=== PATIENT | male | born 1975 | race Caucasian/White ===

== ENCOUNTER 2018-05-27 11:25 | Emergency (ER) | payer BC, OTHER, SELFPAY ==
[2018-05-27 11:29] VITALS: BP 132/92; PULSE 86; TEMP 36.5; O2SAT 97
--- NOTE | 2018-05-27 11:31 | W.ED.GENAD ---
Discharge Plan Discharge Details Chief Complaint: Headache Primary Care Provider: Miguelina,Local ED Provider: Adam Louie Home Meds and New Rx's Prescriptions: New doxycycline hyclate 100 mg tablet 100 mg PO BID Qty: 14 RF: 0 No Action omeprazole 20 mg Capsule,Delayed Release(Dr/Ec) 20 mg PO DAILY RF: 0 Medical Decision Making Patient presenting to the emergency department for chief complaint of headache with some sinus discomfort. Patient states that pain is been severe and worsening over the past couple days. Patient states more symptoms on the left than the right. Physical exam is remarkable for sinus tenderness mainly to frontal and maxillary sinuses with more appreciated pain to the left maxillary sinus. Exam is otherwise unremarkable. Patient does state that he did have a sinus infection in late March and used amoxicillin. Patient reports some continued congestion after that point. Patient has been around other family members with upper respiratory illness. Patient given fluids, ketorolac, and Benadryl in the emergency department for headache. Given severity of patient's symptoms I do feel antibiotic treatment would be beneficial and patient placed on doxycycline. Patient reassessed after receiving medication and states improvement of symptoms. There are no neurological deficits to make me concern for sinus thrombosis or other neurological cause of headache and sinus pressure so patient discharged on doxycycline and informed to follow-up with primary care provider as needed. HPI General Mode of arrival: ambulatory. Date/Time Provider Initiated Documentation: 05/27/18 11:29. Limitations to Documentation: no limitations. Information obtained by: patient and RN notes reviewed. History of Present Illness 42 year old M presents to the emergency department with the chief complaint of sinus pain/headache, described as severe, with intensity rated at 8. Quality is described as sharp, and is localized to the head, face and eyes. Patient started experiencing this day(s) (3) Related Data Home Medications Medication Instructions Recorded Confirmed doxycycline hyclate 100 mg PO BID #14 tab 05/27/18 omeprazole 20 mg PO DAILY 05/27/18 05/27/18 Previous Rx's Medication Instructions Recorded doxycycline hyclate 100 mg PO BID #14 tab 05/27/18 Allergies Allergy/AdvReac Type Severity Reaction Status Date / Time No Known Allergies Allergy Unverified 05/27/18 11:36 Review of Systems Constitutional Denies body ache(s), Reports chills, Denies fever(s) and Reports headache(s) Eyes Denies change in vision ENT Reports as per HPI, Reports headache(s), Reports nasal congestion, Denies neck pain, Reports post nasal drip, Reports sinus pain and Reports sinus pressure Cardiovascular Denies chest pain and Denies syncope Gastrointestinal Reports nausea and Reports vomiting Musculoskeletal Denies neck pain Neurologic Denies syncope and Reports headache(s) [facility] Social History Smoking/Tobacco Use Status: Never Exam Const General: cooperative, healthy appearing, no acute distress and well groomed Orientation: alert, awake and oriented x3 HENMT Head: normal to inspection Ears: hearing grossly normal bilaterally and TM's normal bilaterally Face and sinus: normal facial exam, face symmetric and sinus tenderness frontal and maxillary (Left more than right) Mouth: oral mucosae normal and moist mucous membranes Throat: posterior oropharynx normal, tonsils normal and uvula midline Eyes Visual Crane: normal visual crane by confrontation Alignment and Position: alignment normal Periorbital: periorbital findings normal Eyelids: eyelids normal Sclera: sclerae normal Cornea: corneas normal Pupils: PERRL EOM: EOM intact bilaterally Neck Neck: normal visual inspection, full ROM, no lymphadenopathy and no meningeal signs Resp Effort & Inspection: normal respiratory effort and able to speak in complete sentences Auscultation: clear to auscultation bilaterally Cardio Rate: regular rate Rhythm: regular rhythm Heart Sounds: S1 normal and S2 normal Neuro General: alert, awake, oriented x3, gait normal, tone normal, moves all extremities, no meningeal signs, CN's II-XI intact bilaterally and not confused Cognition: normal cognition Speech: speech normal Motor: muscle tone normal throughout, strength 5/5 throughout, no pronator drift, no movement abnormalities noted and no fasciculations Sensory Exam: no sensory deficits noted Coordination: [id number] test normal and Does not sway with eyes open
[2018-05-27] MEDS: diphenhydrAMINE 50 MG/ML VIAL 25 MG IVP (12:40)
[2018-05-27] MEDS: Ketorolac 30 MG/ML VIAL IVP (12:52)
[2018-05-27] MEDS: Normal Saline 1,000 ML 1000 ML IV (12:52)
[2018-05-27] MEDS: Doxycycline Hyclate 100 MG CAP PO (12:52)
[2018-05-27 13:22] VITALS: BP 135/70; PULSE 60; RESP 16; TEMP 36.5; O2SAT 99
== END 2018-05-27 14:21 | disposition home or self-care (01) ==
PROVIDERS: Emergency Provider Nurse Practitioner Family
DX: J32.9 Chronic sinusitis, unspecified (principal)
CPT/HCPCS: 96361; 96374; 96375; 99284; J1200; J1885

== ENCOUNTER 2020-07-15 14:24 | Emergency (ER) | payer BC, OTHER, SELFPAY ==
[2020-07-15 14:29] VITALS: BP 155/110; PULSE 88; RESP 16; TEMP 36.6; O2SAT 96
--- NOTE | 2020-07-15 15:17 | ED.GENADUL_ITS ---
Discharge Plan Disposition Patient Disposition: HOME Condition: Stable Discharge Details Clinical Impression: Ankle pain Primary Care Provider: Miguelina,Local ED Provider: Robert Hatch Home Meds and New Rx's Prescriptions: Continued dextromethorphan HBr 30 mg Capsule 60 mg PO DAILY RF: 0 Discharge Instructions Instructions: Swollen Joint (ED) Additional Instructions: At this time you have been evaluated and I see no signs of emergent process such as tendon rupture, infection, DVT, vascular compromise, etc. We discussed the pros and cons of obtaining ultrasound here in the ER and after using shared decision-making ultrasound will not be obtained. As we discussed resting, elevating, cool and/or warm compresses, [id number] anti-inflammatory medication as directed. I do recommend contacting your orthopedic team in [place] later today or tomorrow and set up an appointment for early next week when you return home. In the meantime, please watch for new or worsening symptoms and return to the ER for any concerns. Discharge Data Discharge Date/Time-TO BE ENTERED AT DEPARTURE: 07/15/20 15:25 Medical Decision Making 45-year-old gentleman with 2 Achilles tendon surgeries presents for pain that began yesterday while skiing, denies any obvious injury or trauma. Pain was so severe he could not ambulate. Pain has resolved but now he has swelling over his Achilles. There is no swelling in his foot or up into his calf. He lives in [place] and is going to return home on Tuesday, contacted his friend who is a physical therapist who directed him to the ER. At this time he appears well, nontoxic. No sign of DVT or infection. This is likely a soft tissue injury in nature. Neuro, vascular, tendon intact, no indication is a tendon rupture. We discussed options in length. He had pain yesterday, pain has resolved completely today. Certainly improving with minimal treatment. No clear indication for x-ray at this time. Discussed that with his previous 2 surgeries, ultrasound may be helpful to some degree but likely not definitive given his abnormal anatomy. Likely outpatient follow-up with orthopedics and/or MRI will eventually be indicated if symptoms not improving with conservative care. We discussed initiating the therapy today such as ultrasound and the following up with orthopedics once he returns to [place]. He feels relieved after being evaluated, simply wanted a better peace of mind that there was nothing emergent present. He prefer to have all of his care done at home in [place] which I believe to be perfectly reasonable. He will rest, elevate, cool and/or warm compresses, gentle stretching, and use [id number] anti-inflammatories until follow-up with orthopedics sometime next week in [place]. Encouraged to return to the ER for new or worsening symptoms. Patient ambulates without difficulty upon discharge HPI General Mode of arrival: ambulatory . Date/Time Provider Initiated Documentation: 07/15/20 14:27 . Limitations to Documentation: no limitations . Information obtained by: patient . HPI Narrative: This is a 45-year-old gentleman, denies any significant chronic medical problems. He is not a smoker. He reports to me that he has had a history of 2 separate right Achilles tendon repairs back in 2009 and 2011. He states that he made a decent recovery, can still be active and leave the normal life but cannot do activities such as sprinting. He does typically ski and did so yesterday. He denies any obvious injury or trauma during skiing yesterday however after one of his ski runs on the way of the ski lift he noticed that his right Achilles was bothering him. He was able to ski the rest of the day however after taking his boots off he noticed his Achilles was quite tender and it made it very difficult to bear weight yesterday. He also noticed that the area was swollen. He took it easy last night, took [id number] medication, and this morning he reports that he is actually pain-free however area feels tight like it did after surgery, and he notices some swelling to his Achilles region. He denies fever, chest pain, shortness of breath, pain or swelling in his calf, numbness, tingling, weakness in his leg. He contacted his friend who is a physical therapist who recommended some stretching and recommended that he either get evaluated here before he returns home to [place] on Tuesday or get evaluated back home. He decided to come to the ER today for peace of mind to be sure that there is nothing dangerous or emergent going on. Related Data Home Medications Medication Instructions Recorded Confirmed dextromethorphan HBr 60 mg PO DAILY 07/15/20 07/15/20 Allergies Allergy/AdvReac Type Severity Reaction Status Date / Time No Known Allergies Allergy Unverified 07/15/20 15:18 General Stated Complaint: Orthopedic MARCY: 4 Review of Systems Constitutional Constitutional: Denies fever(s) and Denies weakness Cardiovascular Cardiovascular: Denies chest pain and Denies dyspnea Respiratory Respiratory: Denies dyspnea Musculoskeletal Musculoskeletal: Denies numbness, Reports stiffness and Denies tingling Integumentary/Breasts Skin/Breast: Denies erythema Neurologic Neurologic: Denies numbness, Denies tingling and Denies weakness [facility] Social History Smoking/Tobacco Use Status: Never Smoking risk assessment performed?: Yes Alcohol Intake: current Alcohol Intake frequency: holidays/special occasions only Drug use: Never Substance use type: does not use Do you feel safe at home: Yes Do you feel safe in your relationship?: Yes Exam Const General: cooperative, healthy appearing, comfortable and no acute distress Orientation: alert and awake HENUT Head: normal to inspection, normocephalic and atraumatic Eyes General: appearance normal, both eyes and all related structures Conjunctivae: conjunctivae normal Sclera: sclerae normal Neck Neck: normal visual inspection, trachea midline and supple Resp Effort & Inspection: normal respiratory effort and able to speak in complete sentences Auscultation: clear to auscultation bilaterally Cardio Rate: regular rate Rhythm: regular rhythm Skin General skin exam: no rashes or lesions noted Neuro General: patient alert, patient awake, moves all extremities and no focal motor deficits Cognition: normal cognition Speech: speech normal Gait: normal gait Motor: muscle tone normal throughout Sensory Exam: no sensory deficits noted Extrem General: capillary refill normal Right lower extremity: hip/thigh Details: normal to inspection, abnormal to inspection and normal ROM; no tenderness and no swelling and knee Details: normal to inspection and normal ROM; no tenderness, no swelling, no ecchymosis and no unusual warmth Left lower extremity: normal to inspection, full ROM and normal capillary refill Other: Patient with baseline deformity status post 2 Achilles tendon repair. He is able to dorsi and plantar flex his foot at what he describes as his baseline status post surgeries. There is no warmth, erythema. Neuro, vascular, tendon intact. Negative Homans' sign. There is no tenderness. There is minimal swelling at the inferior aspect of the Achilles however there is no swelling, erythema, warmth over the calf whatsoever. Normal dorsalis pedal pulse and normal capillary refill. Psych Appearance: grossly normal Mental Status: mental status grossly normal Course Vital Signs Vital signs: Vital Signs Temperature 36.6 C 07/15/20 14:29 Pulse 88 07/15/20 14:29 Respiratory Rate 16 07/15/20 14:29 Blood Pressure 155/110 H 07/15/20 14:29 Pulse Oximetry 96 07/15/20 14:29 Temperature 36.6 C 07/15/20 14:29 Temperature Source Skin 07/15/20 14:29 Pulse 88 07/15/20 14:29 Respiratory Rate 16 07/15/20 14:29 Respiratory Effort 07/15/20 14:39 Blood Pressure 155/110 H 07/15/20 14:29 Blood Pressure Position Sitting 07/15/20 14:29 Pulse Oximetry 96 07/15/20 14:29 Oxygen Delivery Method Room Air 07/15/20 14:29 Oxygen Flow Rate 0 07/15/20 14:29 Pain Level 7 07/15/20 14:29 Comment 07/15/20 14:29
== END 2020-07-15 15:25 | disposition home or self-care (01) ==
PROVIDERS: Emergency Provider Physician Assistant
DX: M25.471 Effusion, right ankle (principal)
CPT/HCPCS: 99282